=== PATIENT | female | born 1965 | race Caucasian/White ===

== ENCOUNTER 2020-02-02 17:06 | Emergency (ER) | payer OTHER ==
[~2020-02-02] VITALS: Ht 162.6 cm; Wt 90.7 kg
[~2020-02-02 17:06] MED LIST: ALPRAZOLAM ER0.5 MG PO; BENAZEPRIL HCL20 MG PO; CELEXA40 MG PO; CIPROFLOXACIN500 M1 PO; HYDROCHLOROTHIA25 M1 PO; KLOR-CON 10 ER10 MEQ PO; LEVOTHROID150 MCG PO; NORCO 5-325 TA1 EACH PO; PREDNISONE 20 M20 MG PO
[2020-02-02 19:41] VITALS: BP 168/93
== END 2020-02-02 19:42 | disposition home or self-care (01) ==
LOC: ER 17:06
DX: S40.022A Contusion of left upper arm, initial encounter (principal); M54.5 Low back pain; M54.6 Pain in thoracic spine; M79.605 Pain in left leg; Z79.899 Other long term (current) drug therapy; Z87.891 Personal history of nicotine dependence; Z88.5 Allergy status to narcotic agent; V43.62XA Car passenger injured in collision with other type car in traffic accident, initial encounter; Y93.89 Activity, other specified; Y92.89 Other specified places as the place of occurrence of the external cause; Y99.8 Other external cause status

== ENCOUNTER 2021-05-06 19:07 | Emergency (ER) | payer OTHER ==
[~2021-05-06] VITALS: Ht 162.6 cm; Wt 96.2 kg
[2021-05-06 19:18] VITALS: BP 132/89
[2021-05-06] MEDS ORDERED: PROAIR HFA8.5 GM INH (19:39)
[2021-05-06] MEDS ORDERED: APAP W/CODEINE1 TA2 PO (19:39)
[2021-05-06] MEDS ORDERED: PROMETHAZI6.25 MG/5 PO (19:39)
[2021-05-06] MEDS ORDERED: TESSALON PERLE100 MG PO (19:39)
== END 2021-05-06 19:56 | disposition home or self-care (01) ==
LOC: ER 19:07
DX: U07.1 COVID-19 (principal); Z98.51 Tubal ligation status; Z79.899 Other long term (current) drug therapy; Z88.5 Allergy status to narcotic agent; Z87.891 Personal history of nicotine dependence